=== PATIENT | male | born 1955 | race Caucasian/White ===

== ENCOUNTER 2018-10-18 05:41 | Inpatient (IN) | payer BC ==
[~2018-10-18 05:41] MED LIST: BUPIVACAINE 0.5% (SDV) 30 ML, morphine SULFATE (PF) 8 MG, EPINEPHrine 0.3 MG, CLONIDINE... IRR
[2018-10-18] MEDS ORDERED: MORPHINE SULFATE IRR (06:00)
[2018-10-18] MEDS ORDERED: [UNRECOGNIZED DRUG - OTHER] IRR (06:00)
[2018-10-18] MEDS ORDERED: EPINEPHRINE IRR (06:00)
[2018-10-18] MEDS ORDERED: TRANEXAMIC ACID 1GM/100ML(PMX) 100 ML IVPB (06:00)
[2018-10-18] MEDS ORDERED: CEFAZOLIN 2 GM/50 ML (PMX) 50 ML IVPB (06:00)
[2018-10-18] MEDS ORDERED: BUPIVACAINE 0.5% IRR (06:00)
[2018-10-18] MEDS: GABAPENTIN 300 MG CAP PO ×2 (06:27→21:14)
[2018-10-18] MEDS: DEXAMETHASONE 1 MG TAB PO (06:27)
[2018-10-18] MEDS ORDERED: SEVOFLURANE 15 MIN (07:00)
[2018-10-18] MEDS ORDERED: PHENYLephrine 10 MG INJ (07:00)
[2018-10-18] MEDS ORDERED: CEFAZOLIN 1 GM INJ (07:00)
[2018-10-18] MEDS ORDERED: ROPIVACAINE 0.5 % 30 ML VIAL (08:10)
[2018-10-18] MEDS ORDERED: MIDAZOLAM 1 MG/ML 2 ML INJ (08:10)
[2018-10-18] MEDS ORDERED: FENTAnyl 50 MCG/ML VIAL (08:10)
[2018-10-18] MEDS ORDERED: TRANEXAMIC ACID 1GM/100ML(PMX) 100 ML ×2 (08:59→09:32)
[2018-10-18] MEDS: POLYMYXIN/BACITRACIN 1L IRRIG (09:07)
[2018-10-18] MEDS ORDERED: CA CHLORIDE (GM) 10% 10 ML INJ (09:09)
[2018-10-18] MEDS ORDERED: THROMBIN 5000 UNIT VIAL (09:09)
[2018-10-18] MEDS ORDERED: EPHEDrine 25 MG/5 ML SYG (09:30)
[2018-10-18] MEDS ORDERED: ROCURONIUM 50 MG INJ (09:30)
[2018-10-18] MEDS ORDERED: PROPOFOL 20 ML (09:30)
[2018-10-18] MEDS ORDERED: DEXAMETHASONE 4 MG/ML 5 ML INJ (09:30)
[2018-10-18] MEDS ORDERED: ONDANSETRON 4 MG INJ (09:30)
[2018-10-18] MEDS ORDERED: SUCCINYLCHOLINE CHLORIDE 100 MG/5 ML SYG IV (09:30)
[2018-10-18] MEDS ORDERED: LIDOCAINE 2% (SDV) 5 ML INJ (09:30)
[2018-10-18] MEDS ORDERED: FAMOTIDINE 20 MG INJ (09:32)
[2018-10-18] MEDS ORDERED: HYDROmorphONE 2 MG/ML SYG (09:42)
[2018-10-18] MEDS ORDERED: ONDANSETRON 4 MG INJ IV ×2 (10:00→11:00)
[2018-10-18] MEDS ORDERED: DIPHENHYDRAMINE 50 MG INJ IV ×2 (10:00→11:00)
[2018-10-18] MEDS ORDERED: PROCHLORPERAZINE 10 MG INJ IV (10:00)
[2018-10-18] MEDS ORDERED: HYDROmorphONE 1 MG/5 ML IV SYRINGE IV (10:00)
[2018-10-18] MEDS ORDERED: FENTAnyl 50 MCG/ML VIAL IV ×2 (10:00)
[2018-10-18] MEDS ORDERED: MEPERIDINE 25 MG INJ IV (10:00)
[2018-10-18] MEDS ORDERED: NEOSTIGMINE 3 MG/3 ML SYRINGE (10:40)
[2018-10-18] MEDS ORDERED: GLYCOPYRROLATE 0.4 MG INJ (10:40)
[2018-10-18] MEDS ORDERED: MAGNESIUM HYDROXIDE 30ML CUP PO (11:00)
[2018-10-18] MEDS ORDERED: ZOLPIDEM 5 MG TAB PO (11:00)
[2018-10-18] MEDS ORDERED: oxyCODONE 5 MG TAB PO ×2 (11:00)
[2018-10-18] MEDS ORDERED: LOPERAMIDE 2 MG CAP PO (11:00)
[2018-10-18] MEDS: HYDROmorphONE 1 MG/5 ML IV SYRINGE IV ×3 (11:14→11:50)
[2018-10-18] MEDS: TRANEXAMIC ACID 1GM/100ML(PMX) 100 ML IVPB (11:37)
[2018-10-18] MEDS: FENTAnyl 50 MCG/ML VIAL IV (12:31)
[2018-10-18] MEDS: DEXAMETHASONE 2 MG TAB PO ×3 (13:36→23:12)
[2018-10-18] MEDS: ACETAMINOPHEN 500 MG TAB PO ×3 (13:37→23:12)
[2018-10-18] MEDS: oxyCODONE 5 MG TAB PO ×3 (13:37→23:12)
[2018-10-18] MEDS: LACTATED RINGER'S 1,000 ML IV ×3 (13:38→18:42)
[2018-10-18] MEDS: CEFAZOLIN 1 GM/50 ML (PMX) 50 ML IVPB ×2 (16:21→23:12)
[2018-10-18] MEDS: SENNA/DOCUSATE NA (8.6MG/50MG) TAB PO (21:14)
[2018-10-18] MEDS: NACL 0.9% 3 ML SYG IV (23:26)
[2018-10-19] MEDS: HYDROmorphONE 1 MG/ML SYG IV ×2 (01:36→09:36)
[2018-10-19] MEDS: LACTATED RINGER'S 1,000 ML IV ×2 (01:36→09:30)
[2018-10-19] MEDS: oxyCODONE 5 MG TAB PO ×2 (06:31→10:44)
[2018-10-19] MEDS: ACETAMINOPHEN 500 MG TAB PO (06:31)
[2018-10-19] MEDS: PANTOPRAZOLE (EC) 40 MG TAB PO (06:31)
[2018-10-19] MEDS: DEXAMETHASONE 2 MG TAB PO (06:31)
[2018-10-19] MEDS: CEFAZOLIN 1 GM/50 ML (PMX) 50 ML IVPB (06:32)
[2018-10-19] MEDS ORDERED: NON-FORMULARY/PATIENT OWN MED (Valsartan* (Diovan*) 80 MG) PO (09:00)
[2018-10-19] MEDS: LOSARTAN 50 MG TAB PO (09:30)
[2018-10-19] MEDS: HYDROCHLOROTHIAZIDE 12.5 MG CAP PO (09:30)
[2018-10-19] MEDS: SENNA/DOCUSATE NA (8.6MG/50MG) TAB PO (09:30)
[2018-10-19] MEDS: TAMSULOSIN (SR) 0.4 MG CAP PO (09:30)
== END 2018-10-19 11:50 | disposition home or self-care (01) | DRG 483 ==
LOC: REC 05:41 → MS1 12:54
PROC: 0RRK00Z Replacement of Left Shoulder Joint with Reverse Ball and Socket Synthetic Substitute, Open Approach (ICD-10-PCS; principal; 2018-10-18 08:00)
PROC: 0LS40ZZ Reposition Left Upper Arm Tendon, Open Approach (ICD-10-PCS; 2018-10-18 08:00)
DX: M13.812 Other specified arthritis, left shoulder (principal); M75.102 Unspecified rotator cuff tear or rupture of left shoulder, not specified as traumatic; K21.9 Gastro-esophageal reflux disease without esophagitis; N40.0 Benign prostatic hyperplasia without lower urinary tract symptoms; I10 Essential (primary) hypertension; Z96.652 Presence of left artificial knee joint; Z96.611 Presence of right artificial shoulder joint
CPT/HCPCS: 73030; 86999; 88304; 88311; 97161